=== PATIENT | female | born 1990 | race Caucasian/White ===

== ENCOUNTER 2024-04-12 19:20 | Inpatient (IN) | payer BC ==
[2024-04-12] MEDS ORDERED: Water For Irrigation,Sterile 1,000 ML Container IRR PRN (19:23)
[2024-04-12] MEDS ORDERED: Nalbuphine 10 MG/0.5 ML Syringe IVPUSH PRN (19:23)
[2024-04-12] MEDS ORDERED: Lidocaine 1% 50 ML MDV INJECT PRN (19:23)
[2024-04-12] MEDS ORDERED: Terbutaline 1 MG/ML SDV SUBCUT PRN (19:23)
[2024-04-12] MEDS ORDERED: Tranexamic Acid IN NACL,ISO-OS 1,000 MG in Premix Bag 1 BAG IV PRN (19:23)
[2024-04-12] MEDS ORDERED: Misoprostol 200 MCG Tab PO PRN (19:23)
[2024-04-12] MEDS ORDERED: Methylergonovine 0.2 MG/1 ML Amp IM PRN (19:23)
[2024-04-12] MEDS ORDERED: Sodium Chloride 0.9% 10 ML Syringe FLUSH PRN (19:23)
[2024-04-12] MEDS ORDERED: Carboprost Tromethamine 250 MCG/1 mL Vial IM PRN (19:23)
[2024-04-12] MEDS ORDERED: Sodium Chloride 0.9% 20 ML SDV IV PRN (19:23)
[2024-04-12] MEDS ORDERED: Sodium Chloride 0.9% 2.5 ML Syringe FLUSH PRN (19:23)
[2024-04-12] MEDS ORDERED: Oxytocin/0.9 % Sodium Chloride 30 UNIT/500 ML BAG IV SCH (19:30)
[2024-04-12] MEDS: Lactated Ringers 1,000 ML IV SCH (20:16)
[2024-04-12] MEDS: Ampicillin 2 GM in Sodium Chloride 0.9% 100 ML IV ONE (20:21)
[2024-04-12] MEDS: Misoprostol 25 MCG (1/4 of 100 MCG) Tab VAG PRN (20:29)
[2024-04-12 21:01] LABS: HEMATOCRIT 40.3 % (37.0-47.0); HEMOGLOBIN 14.2 g/dL (12.0-16.0); MEAN CORPUSCULAR HEMOGLOBIN 31.3 pg (28.0-32.0); MEAN CORPUSCULAR HGB CONC 35.2 g/dL (32.0-36.0); MEAN PLATELET VOLUME 9.5 fL (9.4-12.3); PLATELET COUNT,PLT 266 K/uL (150-400); RED BLOOD CELL COUNT 4.53 M/uL (4.10-5.30); WHITE BLOOD CELL COUNT,WBC 15.38 K/uL (3.9-11.3)
[2024-04-12] MEDS ORDERED: ePHEDrine 50 MG/ML SDV IVPUSH PRN ×2 (22:13)
[2024-04-12] MEDS ORDERED: Bupivacaine 0.5% 10 ML SDV INJECT ONE (22:13)
[2024-04-12] MEDS ORDERED: Ropivacaine HCl/PF 400 MG in Premix Bag 1 BAG EPIDUR SCH (22:15)
[2024-04-13] MEDS: Ampicillin 1 GM in Sodium Chloride 0.9% 50 ML IV STA (00:42)
[2024-04-13] MEDS: Misoprostol 25 MCG (1/4 of 100 MCG) Tab VAG PRN (02:38)
[2024-04-13] MEDS: Ampicillin 1 GM in Sodium Chloride 0.9% 50 ML IV SCH (04:44)
[2024-04-13] MEDS: Butorphanol 2 MG/ML SDV IVPUSH PRN (08:16)
[2024-04-13] MEDS ORDERED: Bupivacaine 0.5% 10 ML SDV ONE (21:00)
[2024-04-13] MEDS: Ondansetron 4 MG/2 ML SDV IVPUSH PRN (21:59)
[2024-04-14] MEDS: Phenylephrine HCl In 0.9% NaCl 1 MG/10 ML Syringe IVPUSH PRN (02:39)
[2024-04-14] MEDS: Oxytocin/0.9 % Sodium Chloride 30 UNIT/500 ML BAG IV SCH (05:01)
[2024-04-14] MEDS ORDERED: Azithromycin 500 MG in Sodium Chloride 0.9% 250 ML IV ONE (08:36)
[2024-04-14] MEDS ORDERED: ePHEDrine 50 MG/ML SDV IVPUSH PRN (08:37)
[2024-04-14] MEDS ORDERED: Naloxone 0.4 MG/ML SDV IVPUSH PRN (08:37)
[2024-04-14] MEDS ORDERED: HYDROmorphone 1 MG/ML Syringe IVPUSH PRN (08:37)
[2024-04-14] MEDS ORDERED: fentaNYL 100 MCG/2 ML SDV IVPUSH PRN (08:37)
[2024-04-14] MEDS ORDERED: diphenhydrAMINE 50 MG/ML SDV IVPUSH PRN ×2 (08:37→09:43)
[2024-04-14] MEDS ORDERED: Ondansetron 4 MG/2 ML SDV IVPUSH PRN ×3 (08:37→09:43)
[2024-04-14] MEDS ORDERED: Albuterol 0.083% 2.5 MG/3 ML Neb Soln NEB PRN (08:37)
[2024-04-14] MEDS ORDERED: Metoclopramide 10 MG/2 ML SDV IVPUSH PRN (08:37)
[2024-04-14] MEDS ORDERED: Morphine 2 MG/ML SYRINGE IVPUSH PRN (08:37)
[2024-04-14] MEDS ORDERED: fentaNYL 50 MCG/ML SDV IVPUSH PRN (08:37)
[2024-04-14] MEDS ORDERED: droPERidol 5 MG/2 ML SDV IVPUSH PRN (08:37)
[2024-04-14] MEDS ORDERED: Acetaminophen/oxyCODONE 325-5 MG Tab PO PRN (08:37)
[2024-04-14] MEDS ORDERED: ceFAZolin 2 GM in Sodium Chloride 0.9% 50 ML IV ONE (08:37)
[2024-04-14] MEDS ORDERED: Bupivacaine 0.25% 30 ML SDV ONE (08:47)
[2024-04-14] MEDS ORDERED: Ketorolac 30 MG/ML SDV ONE (08:47)
[2024-04-14] MEDS ORDERED: Ropivacaine 0.5% 5 MG/ML 30 ML SDV ONE (08:47)
[2024-04-14] MEDS ORDERED: Morphine PF 10 MG/10 ML SDV ONE (08:47)
[2024-04-14] MEDS ORDERED: ceFAZolin 1 GM Vial ONE (08:47)
[2024-04-14] MEDS ORDERED: EPINEPHrine 1 MG/1 ML Amp ONE (08:47)
[2024-04-14] MEDS ORDERED: Oxytocin 10 Units/1 ML SDV ONE (08:47)
[2024-04-14] MEDS ORDERED: Bupivacaine 0.5% 10 ML SDV ONE (08:48)
[2024-04-14] MEDS ORDERED: Lidocaine 2% 5 ML SDV ONE (08:48)
[2024-04-14] MEDS ORDERED: Phenylephrine HCl In 0.9% NaCl 1 MG/10 ML Syringe ONE (09:01)
[2024-04-14] MEDS ORDERED: Azithromycin 500 MG Vial ONE (09:04)
[2024-04-14] MEDS ORDERED: Methylergonovine 0.2 MG/1 ML Amp IM PRN (09:43)
[2024-04-14] MEDS ORDERED: oxyCODONE 5 MG Tab PO PRN (09:43)
[2024-04-14] MEDS ORDERED: Lanolin 100% Cream 7 GM Tube TOP PRN (09:43)
[2024-04-14] MEDS ORDERED: Bisacodyl 10 MG Supp RECTAL PRN (09:43)
[2024-04-14] MEDS ORDERED: Oxytocin 10 Units/1 ML SDV IM PRN (09:43)
[2024-04-14] MEDS ORDERED: Tranexamic Acid IN NACL,ISO-OS 1,000 MG in Premix Bag 1 BAG IV PRN (09:43)
[2024-04-14] MEDS ORDERED: Lactated Ringers 1,000 ML IV SCH (09:45)
[2024-04-14] MEDS ORDERED: Oxytocin/0.9 % Sodium Chloride 30 UNIT/500 ML BAG IV SCH (09:45)
[2024-04-14 10:04] LABS: PH,UMBILICAL ARTERIAL 7.266 (7.18-7.38); PH,UMBILICAL VENOUS 7.326 (7.25-7.45)
[2024-04-14] MEDS: Ketorolac 30 MG/ML SDV IVPUSH SCH (10:33)
[2024-04-14] MEDS ORDERED: Acetaminophen 1,000 MG in Premix Bag 1 BAG IV PRN (11:00)
[2024-04-14] MEDS: Docusate Sodium 100 MG Cap PO SCH (21:15)
[2024-04-15] MEDS: Acetaminophen 500 MG Tab PO PRN (00:34)
[2024-04-15 05:51] LABS: HEMATOCRIT 33.4 % (37.0-47.0); HEMOGLOBIN 11.1 g/dL (12.0-16.0)
[2024-04-15] MEDS: Ibuprofen 800 MG Tab PO PRN (17:09)
== END 2024-04-16 14:45 | disposition home or self-care (01) | DRG 540 ==
LOC: MW.OB 19:20 → OBSVTOIN 19:20 → MW.OB 04-14 14:35
PROVIDERS: ADMIT Obstetrics & Gynecology; ATTEND Obstetrics & Gynecology
PROC: 10D00Z1 Extraction of Products of Conception, Low, Open Approach (ICD-10-PCS; principal; 2024-04-12)
PROC: 3E0R3BZ Introduction of Anesthetic Agent into Spinal Canal, Percutaneous Approach (ICD-10-PCS; 2024-04-12)
PROC: 00HU33Z Insertion of Infusion Device into Spinal Canal, Percutaneous Approach (ICD-10-PCS; 2024-04-12)
DX: O99.892 Other specified diseases and conditions complicating childbirth (principal); M79.7 Fibromyalgia; M41.9 Scoliosis, unspecified; O99.824 Streptococcus B carrier state complicating childbirth; O32.3XX0 Maternal care for face, brow and chin presentation, not applicable or unspecified; Z37.0 Single live birth; Z3A.39 39 weeks gestation of pregnancy; Z90.49 Acquired absence of other specified parts of digestive tract
CPT/HCPCS: 36415; 51702; 59025; 82803; 85014; 85018; 85027; 86592; 86850; 86900; 86901; A9270-GY; J0171; J0290; J0456; J0595; J0665; J0690; J1100; J1885; J2274; J2371; J2405; J2590; J2795; J3490; J7120